=== PATIENT | male | born 1960 | race Caucasian/White ===

== ENCOUNTER 2022-05-14 02:24 | Emergency (ER) | payer OTHER, SELFPAY ==
[2022-05-14 02:27] VITALS: BP 174/63; PULSE 89; RESP 18; TEMP 36.3; O2SAT 98; BMI 33.7
[2022-05-14 02:40] VITALS: BP 173/92; PULSE 98; RESP 15; TEMP 36.7; O2SAT 99
[2022-05-14 02:59] LABS: Basophils Percent Auto 0.4 % (0-2); Eosinophils Absolute Auto 0.2 X10*3/uL (0.0-0.4); Eosinophils Percent Auto 3.1 % (0-4); Hematocrit 46.6 % (42.0-52.0); Hemoglobin 16.7 g/dl (14.0-18.0); Imm Gran Abs Auto 0.04 X10*3/uL (0.00-0.03); Imm Gran Pct Auto 0.6 % (0.0-0.4); Lymphocytes Absolute Auto 1.5 X10*3/uL (1.2-4.9); Lymphocytes Percent Auto 21.8 % (20-40); MANUAL DIFF FLAG NO; Mean Corpuscular HGB Conc 35.8 g/dl (31.0-36.0); Mean Corpuscular Hemoglobin 31.2 pg (27.0-33.0); Mean Corpuscular Volume 86.9 fL (80.0-98.0); Mean Platelet Volume 8.5 fL (9.4-12.4); Monocytes Absolute Auto 0.8 X10*3/uL (0.1-1.2); Monocytes Percent Auto 11.4 % (2-11); Neutrophils Absolute Auto 4.2 x10*3/uL (2.0-8.3); Neutrophils Percent Auto 62.7 % (45-73); Platelet Count 202 X10*3/uL (160-400); Red Blood Count 5.36 X10*6/uL (4.60-5.80); Red Cell Distribution Width 12.5 % (11.0-16.0); White Blood Count 6.7 X10*3/uL (4.8-10.8)
[2022-05-14 03:15] LABS: Alanine Aminotransferase 37 U/L (0-40); Albumin Level 4.5 g/dL (3.5-5.0); Alkaline Phosphatase 100 U/L (39-117); Anion Gap 11 (12-20); Aspartate Amino Transferase 30 U/L (5-37); Bilirubin Total 1.1 mg/dL (0.0-1.0); Blood Urea Nitrogen 10 mg/dL (9-16); Calcium 9.3 mg/dL (8.4-10.2); Carbon Dioxide 31 mmol/L (22-29); Chloride 102 mmol/L (96-108); Estimated Glomerular Filt Rate > 60; Glucose Random 113 mg/dL (60-115); Potassium 4.3 mmol/L (3.3-5.1); Sodium 140 mmol/L (135-145); Total Protein 7.3 g/dL (6.5-8.0)
--- NOTE | 2022-05-14 05:11 | ED.GENADULT ---
HPI - General Adult General Chief complaint: Dental/Oral Stated complaint: COVID +, sent by PCP due to throat swelling Time Seen by Provider: 05/14/22 05:02 Source: patient Mode of arrival: ambulatory Limitations: no limitations History of Present Illness HPI narrative: 7-year-old male who presents emergency department for evaluation of throat pain and throat swelling. The patient states that 5 days prior to evaluation he developed rhinorrhea and a slight cough. He states that 4 days prior to evaluation he had a positive COVID test. Patient states that he has received all of his COVID-19 vaccines including his booster shots. Patient states that he was feeling fine until last night at 23:30 hours when he woke up from sleep with a tightness in his throat. He states that he was choking. Since that time he has had difficulty swallowing. States that this happened to him 8 years prior when he had the flu and pneumonia. He states that he had inflammation in the back of his throat and he required prednisone in order to get better. The patient denied fever, chills, shortness of breath, cough, dyspnea on exertion. He has not noticed any pain or swelling in his lower extremities. Related Data Previous Rx's Medication Instructions Recorded prednisone 20 mg tablet 60 mg PO DAILY 5 days #15 tabs 05/14/22 Allergies Allergy/AdvReac Type Severity Reaction Status Date / Time Penicillins Allergy Anaphylaxis Verified 05/14/22 02:27 Review of Systems Review of Systems: Yes all other systems are reviewed and are negative [facility] Social History Social History Advance Directives: No Advance Directives Information Provided: No Physical Exam ED Vital Signs: Vital Signs - 24 hr 05/14/22 02:27 05/14/22 02:40 Temperature 97.4 F 98.1 F Pulse Rate 89 98 Respiratory Rate 18 15 Blood Pressure 174/63 H 173/92 H Pulse Oximetry 98 99 Oxygen Delivery Method Room Air Room Air BMI result Body Mass Index 33.7 Const General: cooperative and no acute distress Orientation/consciousness: oriented to person and oriented to place Limitations: no limitations HENMT Head: Yes normal to inspection, Yes normocephalic and Yes atraumatic Ears: external ears normal General nose exam: Normal external nose present Face and sinus: Yes normal facial exam Mouth: Normal oral and palatal mucosa present Throat: Yes posterior oropharynx normal Eyes General: appearance normal, both eyes and all related structures Pupils: Equal, round and reactive pupils present Neck Neck: Yes normal visual inspection, Yes no lymphadenopathy, Yes trachea midline and Yes supple Chest Chest palpation & inspection: normal inspection of the chest and normal palpation of entire chest wall Resp Effort & Inspection: normal respiratory effort and able to speak in complete sentences Auscultation: clear to auscultation bilaterally Cardio Rate: regular rate Rhythm: regular rhythm Heart sounds: S1 normal heart sound present, S2 normal heart sound present and no murmurs GI Inspection: Yes normal to inspection Palpation (GI): Soft to palpation, nontender and no guarding Auscultation: normal bowel sounds General: Yes no CVA tenderness Back/Spine/Pelvis Back: no CVA tenderness Skin General skin exam: no rashes or lesions noted Neuro General: oriented to person and oriented to place Cranial nerves: Yes CN's II-XII intact bilaterally and Yes Equal, round and reactive pupils present Cognition (Neuro): normal cognition Extrem General: Yes normal to inspection Psych Appearance: grossly normal Speech and movement: Normal speech and movement present Affect: normal affect Attitude: cooperative Course Course Course Narrative: 61-year-old male who was fully vaccinated against COVID-19 in turned COVID positive 5 days prior with minimal symptoms including rhinorrhea and cough. Patient woke up yesterday evening at 23:30 hours with throat pain and difficulty swallowing. Patient has had similar presentations in the past with fluid with pneumonia. Patient's vital signs did reveal an elevated blood pressure of 174/63 otherwise were unremarkable with an O2 saturation of 98% on room air. Patient's physical examination did not reveal any significant posterior pharyngeal findings, as he has no difficulty swallowing his saliva. Patient had a laboratory evaluation including a CBC, CMP which was unremarkable. At this time I believe the patient has inflammation in the back of his throat most likely related to the viral infection. Patient has benefitted from prednisone in the past therefore he was given prednisone 60 mg orally and prescribed prednisone 60 mg once a day for 5 days. He was given printed and verbal instructions and discharged home. Medical Decision Making Lab Data Result diagrams: 05/14/22 02:54 05/14/22 02:54 Labs: Lab Results 05/14/22 05/14/22 Range/Units 02:54 02:54 WBC 6.7 (4.8-10.8) X10*3/uL RBC 5.36 (4.60-5.80) X10*6/uL Hgb 16.7 (14.0-18.0) g/dl Hct 46.6 (42.0-52.0) % MCV 86.9 (80.0-98.0) fL MCH 31.2 (27.0-33.0) pg MCHC 35.8 (31.0-36.0) g/dl RDW 12.5 (11.0-16.0) % Plt Count 202 (160-400) X10*3/uL MPV 8.5 L (9.4-12.4) fL Immature Gran % (Auto) 0.6 H (0.0-0.4) % Neut % (Auto) 62.7 (45-73) % Lymph % (Auto) 21.8 (20-40) % [place] % (Auto) 11.4 H (2-11) % Eos % (Auto) 3.1 (0-4) % Baso % (Auto) 0.4 (0-2) % Lymph # (Auto) 1.5 (1.2-4.9) X10*3/uL [place] # (Auto) 0.8 (0.1-1.2) X10*3/uL Eos # (Auto) 0.2 (0.0-0.4) X10*3/uL Baso # (Auto) 0.0 (0.0-0.2) X10*3/uL Abs Immat Gran (auto) 0.04 H (0.00-0.03) X10*3/uL Absolute Neuts (auto) 4.2 (2.0-8.3) x10*3/uL Absolute Nucleated RBC 0.000 (0.0-0.012) X10*3/uL Nucleated RBC % (auto) 0.0 (0.0-0.2) /100WBC Sodium 140 (135-145) mmol/L Potassium 4.3 (3.3-5.1) mmol/L Chloride 102 (96-108) mmol/L Carbon Dioxide 31 H (22-29) mmol/L Anion Gap 11 L (12-20) BUN 10 (9-16) mg/dL Creatinine 0.75 (0.5-1.4) mg/dL Estim Creat Clear Calc 128.0 Estimated GFR > 60 Random Glucose 113 (60-115) mg/dL Calcium 9.3 (8.4-10.2) mg/dL Total Bilirubin 1.1 H (0.0-1.0) mg/dL AST 30 (5-37) U/L ALT 37 (0-40) U/L Alkaline Phosphatase 100 (39-117) U/L Total Protein 7.3 (6.5-8.0) g/dL Albumin 4.5 (3.5-5.0) g/dL Discharge Plan Discharge Clinical Impression: Pain in throat, COVID-19 virus infection Patient Disposition: Home, Self-Care Additional Instructions: Your O2 saturation was normal at 98%, this time I do not think that you have COVID-19 pneumonia Your blood work was also normal which is reassuring. You most likely have inflammation in the back of h your er throat caused by the COVID-19 virus Take prednisone 20 mg pills, 3 pills once a day for 5 days. While you are taking prednisone, do not take any NSAIDs (Motrin, Advil, ibuprofen, Aleve, naproxen). Take Tylenol (acetaminophen) 500 mg pills, 2 pills every 4 to 6 hours as needed for pain or fever. Follow-up with your doctor in 2 days. Please return to the emergency department if your symptoms get worse or if you develop any symptoms that are concerning to you. Prescriptions: New prednisone 20 mg tablet 60 mg PO DAILY 5 Days Qty: 15 0RF
[2022-05-14] MEDS: predniSONE 20 MG TABLET 60 MG PO (05:24)
== END 2022-05-14 05:31 | disposition home or self-care (01) ==
PROVIDERS: Emergency Provider Emergency Medicine Emergency Medical Services; PCP Family Medicine
DX: U07.1 COVID-19 (principal); J02.9 Acute pharyngitis, unspecified
CPT/HCPCS: 36415; 80053; 85025; 99283; 99284

== ENCOUNTER 2024-10-11 08:37 | Outpatient (REF) | payer OTHER, SELFPAY ==
--- NOTE | ~2024-10-11 | MR_ITS ---
EXAMINATION: MR CERVICAL SPINE WITHOUT CONTRAST CLINICAL INFORMATION: Numbness in the right upper extremity. Old trauma. COMPARISON: None available. TECHNIQUE: MRI of the cervical spine was obtained using routine sequences without contrast. FINDINGS: There is a bone marrow STIR signal abnormality involving the endplates of T1-2 on the right side and extending into lateral elements. The craniocervical junction is intact. There is incomplete fusion/ankylosis of the posterior aspect of the vertebral bodies throughout the axial skeleton. The cervical spinal cord signal is normal. C2-3: No central spinal canal or neuroforamina stenosis. C3-4: Broad-based disc osteophyte complex formation. No cord compression. No neuroforamina stenosis. C4-5: Broad-based disc osteophyte complex formation. No cord compression. No neuroforamina stenosis. C5-6: Broad-based disc osteophyte complex formation. No cord compression. Bilateral perineural cysts, right larger than the left side. C6-7: Bilateral perineural cysts. No cord compression. No neuroforamina stenosis. C7-T1: No cord compression. No neuroforamina stenosis. Bilateral perineural cysts. Nonspecific prominent cervical lymph nodes. Flow-void signal within the main vessels is normal. Left vertebral artery slightly dominant. MR/MR cervical spine wo con IMPRESSION: Acute to subacute bone contusions extending from the right side of the endplates of T1 and T2 into the right posterior elements. Concerning for ankylosing spondylitis. No cord compression, cord edema and or myelopathy. Nonspecific bilateral cervical lymph nodes. Lymphoproliferative disorder cannot be excluded. Multilevel bilateral perineural cysts. Electronically signed by: Vaughn Aguirre MD 10/12/2024 11:17 AM EDT
== END 2024-10-11 08:38 | disposition home or self-care (01) ==
LOC: HO.MRI 08:37
PROVIDERS: PCP Family Medicine; Visit Provider Psychiatry & Neurology Neurology
DX: M54.12 Radiculopathy, cervical region (principal); R20.0 Anesthesia of skin; S14.10 Unspecified injury of cervical spinal cord
CPT/HCPCS: 72141

== ENCOUNTER → 2024-10-11 08:48 | Outpatient (BNV) | payer OTHER, SELFPAY | PROVIDERS: PCP Family Medicine; Visit Provider Radiology Diagnostic Radiology | DX: M45.2 Ankylosing spondylitis of cervical region (principal) | CPT/HCPCS: 72141 ==